=== PATIENT | male | born 1965 | race Caucasian/White ===

== ENCOUNTER 2019-01-13 20:38 | Emergency (ER) | payer MEDICAID, OTHER ==
[2019-01-13] MEDS ORDERED: DIAZEPAM 5 MG TABLET ONE (21:59)
[2019-01-13] MEDS ORDERED: dexAMETHasone 10 MG/ML VIAL ONE (21:59)
[2019-01-13] MEDS ORDERED: ONDANSETRON 4 MG/2 ML VIAL ONE (22:00)
[2019-01-13] MEDS ORDERED: NA CHLORIDE 0.9% 1,000 ML ONE (22:00)
[2019-01-13] MEDS ORDERED: KETOROLAC 30 MG/ML INJ ONE (22:00)
[2019-01-13] MEDS ORDERED: HYDROMORPHONE HCL 1 MG/ML INJ ONE (22:00)
[2019-01-13 22:10] LABS: Absolute Lymphocytes (CBC) 0.9 K/uL (0.7-4.9); Basophils % 0.4 % (0-1.3); Hematocrit 40.2 % (39.6-49.0); Lymphocytes % 19.3 % (15.3-44.8); MPV 7.2 fL (7.6-11.3); RBC Red Blood Cell Count 4.55 M/uL (4.33-5.43)
[2019-01-13 22:43] LABS: ALT/SGPT 15 U/L (12-78); AST/SGOT 10 U/L (15-37); Albumin 3.3 g/dL (3.4-5.0); Alkaline Phosphatase 95 U/L (45-117); BUN Blood Urea Nitrogen 13 mg/dL (7-18); Bicarbonate 30 mmol/L (21-32); Bilirubin Direct 0.1 mg/dL (0-0.2); Bilirubin Total 0.4 mg/dL (0.2-1.0); Glucose Level 104 mg/dL (74-106); Potassium 3.8 mmol/L (3.5-5.1); Protein, Total 7.5 g/dL (6.4-8.2); Protime INR 0.91; Sodium Level 139 mmol/L (136-145)
[2019-01-13 23:22] LABS: Urine Blood TRACE (NEG); Urine Glucose NEGATIVE (NEG); Urine Protein NEGATIVE (NEG)
[2019-01-13 23:45] LABS: Barbiturates NEGATIVE (NEGATIVE); Benzodiazepines NEGATIVE (NEGATIVE); Cocaine POSITIVE (NEGATIVE); METHAMPHETAM POSITIVE (NEGATIVE); Methadone NEGATIVE (NEGATIVE); Opiates NEGATIVE (NEGATIVE); Phencyclidine NEGATIVE (NEGATIVE); THC Cannibis NEGATIVE (NEGATIVE)
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
[2019-01-14 02:47] VITALS: BP 126/80; O2SAT 100
--- NOTE | 2019-01-14 11:33 | RAD REPORT ---
EXAM DESCRIPTION: CT - Thoracic Spine W/o Cont - 01/14/2019 3:20 am CLINICAL HISTORY: The patient is 53 years old and is Male; PAIN TECHNIQUE: Axial computed tomography images of the thoracic spine without intravenous contrast. Sa gittal and coronal reformatted images were created and reviewed. This CT exam was performed using o ne or more of the following dose reduction techniques: automated exposure control, adjustment of th e mA and/or kV according to patient size, and/or use of iterative reconstruction technique. COMPARISON: No relevant prior studies available. FINDINGS: ARTIFACTS: The exam is suboptimal secondary to motion artifact. VERTEBRAE: Evidence of a hemangioma within the T8 vertebral body is noted. Elongation and slight flattening of the T8, T9, T10, and T11 vertebral bodies is noted. There is no acute fracture. Mild anterior osteophyte formation and intervertebral disc space narrowing from T8 through T12 is present . DISCS/SPINAL CANAL/NEURAL FORAMINA: See above. SOFT TISSUES: The soft tissues are normal. PLEURAL SPACE: A trace left pleural effusion is present. IMPRESSION: 1. Spondylosis of the thoracic spine without acute findings. 2. Trace left pleural effusion. Electronically signed by: Maryse Pimentel MD 01/13/2019 11:04 PM CDT Due to temporary technical issues with the PACS/Fluency reporting system, reports are being signed by the in house radiologist as a courtesy to ensure prompt reporting. The interpreting radiologist is f ully responsible for the content of the report.
--- NOTE | 2019-01-14 11:34 | RAD REPORT ---
EXAM DESCRIPTION: CT - Spine Lumbar Wo Con - 01/14/2019 3:21 am CLINICAL HISTORY: The patient is 53 years old and is Male; PAIN TECHNIQUE: Axial computed tomography images of the lumbar spine without intravenous contrast. Sagi ttal and coronal reformatted images were created and reviewed. This CT exam was performed using one or more of the following dose reduction techniques: automated exposure control, adjustment of the mA and/or kV according to patient size, and/or use of iterative reconstruction technique. COMPARISON: No relevant prior studies available. FINDINGS: VERTEBRAE: The vertebral body heights and alignment are maintained. There is no acute fr acture. DISCS/SPINAL CANAL/NEURAL FORAMINA: Intervertebral disc space narrowing with osteophyte formatio n and facet arthropathy throughout the lumbar spine is noted, most prominent at L4-L5. Disc bulges fr om L2 through L5 are present. Bilateral neural foraminal narrowing is noted most prominent at L4-L5. SOFT TISSUES: The soft tissues are normal. OTHER FINDINGS: Postsurgical change of the SI joints with 2 orthopedic screws present. IMPRESSION: Mild to moderate spondylosis of the lumbar spine without acute findings. Electronically signed by: Maryse Pimentel MD 01/13/2019 11:06 PM CDT Due to temporary technical issues with the PACS/Fluency reporting system, reports are being signed by the in house radiologist as a courtesy to ensure prompt reporting. The interpreting radiologist is f ully responsible for the content of the report.
--- NOTE | 2019-01-15 08:43 | EKG ---
Test Date: 2019-01-13 Test Time: 22:38:20 Short Piece Handler: NIRAV MEASUREMENT RESULTS: Intervals: Rate: 88 VT: 132 QRSD: 90 QT: 382 QTc: 462 [place]: P: 71 VT: 132 QRS: 71 T: 62 INTERPRETIVE STATEMENTS: Normal sinus rhythm Normal ECG No previous ECG available for comparison Electronically Signed On 01-15-19 08:41:24 CDT by Jack Roldan
== END 2019-01-14 01:33 | disposition home or self-care (01) ==
LOC: ER 20:38
DX: S39.012A Strain of muscle, fascia and tendon of lower back, initial encounter (principal); M47.896 Other spondylosis, lumbar region; F14.10 Cocaine abuse, uncomplicated; T78.8XXA Other adverse effects, not elsewhere classified, initial encounter; T43.625A Adverse effect of amphetamines, initial encounter; M47.894 Other spondylosis, thoracic region; F17.210 Nicotine dependence, cigarettes, uncomplicated; X50.0XXA Overexertion from strenuous movement or load, initial encounter; Y93.89 Activity, other specified; Y92.017 Garden or yard in single-family (private) house as the place of occurrence of the external cause; Y92.9 Unspecified place or not applicable
CPT/HCPCS: 96361; 93005; 85025; 80048; 36415; 80320; 80329 ×2; 85610; 80076; 80307 ×8; 85730; 81003; 72131; 72128; 96375; 96374; 99284; J1100; J1170; J7030; J2405

== ENCOUNTER 2019-01-16 12:49 | Emergency (ER) | payer OTHER ==
[2019-01-16] MEDS ORDERED: KETOROLAC 30 MG/ML INJ ONE (13:29)
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
[2019-01-16 16:05] VITALS: BP 120/80; TEMP 98; O2SAT 100
== END 2019-01-16 15:49 | disposition home or self-care (01) ==
LOC: ER 12:49
DX: M47.892 Other spondylosis, cervical region (principal); M47.896 Other spondylosis, lumbar region
CPT/HCPCS: 96372; 99283

== ENCOUNTER 2019-11-16 07:38 | Emergency (ER) | payer OTHER ==
--- OUTSIDE RECORDS SUMMARY | 2019-11-16 07:48 | XMS REPORT | Continuity of Care Document ---
:1965 Author Organization [facility] t Address [address] [place] [address] [place] [id number] Care Team Providers Name Role Phone Unavailable Unavailable Unavailable Problems This patient has no known problems. Allergies, Adverse Reactions, Alerts This patient has no known allergies or adverse reactions. Medications This patient has no known medications. Procedures This patient has no known procedures. Results This patient has no known results.
[2019-11-16] MEDS ORDERED: NA CHLORIDE 0.9% 1,000 ML ONE (08:18)
[2019-11-16 08:30] LABS: Basophils % 0.8 % (0-1.3); Hematocrit 39.2 % (39.6-49.0); Lymphocytes % 25.4 % (15.3-44.8); MPV 6.9 fL (7.6-11.3); RBC Red Blood Cell Count 4.57 M/uL (4.33-5.43)
[2019-11-16] MEDS ORDERED: ZIPRASIDONE MESYLA 20 MG/VIAL IM ONE (09:15)
[2019-11-16] MEDS ORDERED: LORazepam 2 MG/ML VIAL ONE (09:15)
[2019-11-16] MEDS ORDERED: WATER FOR INJ,STERILE 10 ML ONE (09:16)
[2019-11-16 10:18] LABS: ALT/SGPT 19 U/L (12-78); AST/SGOT 20 U/L (15-37); Albumin 3.7 g/dL (3.4-5.0); Alkaline Phosphatase 89 U/L (45-117); BUN Blood Urea Nitrogen 15 mg/dL (7-18); Bicarbonate 26 mmol/L (21-32); Bilirubin Direct 0.2 mg/dL (0-0.2); Bilirubin Total 0.8 mg/dL (0.2-1.0); Glucose Level 122 mg/dL (74-106); Potassium 3.5 mmol/L (3.5-5.1); Protein, Total 7.4 g/dL (6.4-8.2); Sodium Level 138 mmol/L (136-145)
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
[2019-11-16 10:30] LABS: Protime INR 1.03
[2019-11-16 12:07] VITALS: BP 119/74
[2019-11-16 12:09] VITALS: TEMP 98.7; O2SAT 97
--- NOTE | 2019-11-18 07:38 | EKG ---
Test Date: 2019-11-16 Test Time: 08:22:49 Seat Installer: LUKE MEASUREMENT RESULTS: Intervals: Rate: 78 TX: 138 QRSD: 88 QT: 418 QTc: 476 [place]: P: 76 TX: 138 QRS: 64 T: 79 INTERPRETIVE STATEMENTS: Normal sinus rhythm Normal ECG Compared to ECG 01/13/2019 22:38:20 No significant changes Electronically Signed On 11-18-19 07:33:01 CDT by Sebastien Salas
== END 2019-11-16 11:39 ==
LOC: ER 07:38
DX: F20.0 Paranoid schizophrenia (principal); F17.210 Nicotine dependence, cigarettes, uncomplicated
CPT/HCPCS: 93005; 85025; 80048; 36415; 80320; 80329 ×2; 85610; 80076; 85730; 96360; 96372; 99285; J3486; J7030